=== PATIENT | female | born 1975 | race Caucasian/White ===

== ENCOUNTER 2017-05-24 11:46 | Emergency (ER) | payer SELFPAY ==
[~2017-05-24] VITALS: Ht 160 cm; Wt 75.0 kg
[2017-05-24 11:47] VITALS: BP 140/63; PULSE 92; RESP 20; TEMP 98.6; O2SAT 98
[2017-05-24] MEDS ORDERED: ACYCLOVIR 200 MG CAP PO ONE (12:30)
[2017-05-24] MEDS ORDERED: IBUPROFEN 600 MG TAB PO ONE (12:30)
[2017-05-24] MEDS ORDERED: ACETAMINOPHEN 500 MG CPLT PO ONE (12:30)
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
[2017-05-24] MEDS ORDERED: ACYC200C66 PO (13:18)
[2017-05-25 10:12] LABS: HSV 1,PCR Negative (Negative)
== END 2017-05-24 14:49 | disposition home or self-care (01) ==
LOC: NEPD 11:46
DX: N76.0 Acute vaginitis (principal)
CPT/HCPCS: 87529; 99283

== ENCOUNTER 2017-05-28 15:37 | Emergency (ER) | payer SELFPAY ==
[~2017-05-28] VITALS: Ht 160 cm; Wt 76.0 kg
[~2017-05-28 15:37] MED LIST: ACYC200C66 PO
[2017-05-28 15:42] VITALS: BP 131/74; PULSE 90; RESP 18; TEMP 98; O2SAT 97
[2017-05-28 16:32] LABS: AUTOMATED NEUTROPHIL # 7.9 TH/MM3 (1.8-7.7); BASOPHIL # 0.1 TH/MM3 (0-0.2); BASOPHIL % 0.4 % (0.0-2.0); EOSINOPHIL # 0.2 TH/MM3 (0-0.4); EOSINOPHIL % 1.9 % (0.0-4.0); HEMO FLAGS DIFF FINAL; LYMPH % 27.5 % (9.0-44.0); LYMPHOCYTE # 3.4 TH/MM3 (1.0-4.8); MEAN CELL VOLUME 88.1 FL (80.0-100.0); MEAN CORPUSCULAR HEMOGLOBIN 30.5 PG (27.0-34.0); MEAN CORPUSCULAR HGB CONC 34.7 % (32.0-36.0); MONO % 6.1 % (0.0-8.0); NEUT % 64.1 % (16.0-70.0); PLATELET COUNT 249 TH/MM3 (150-450); RED BLOOD COUNT 4.42 MIL/MM3 (4.00-5.30); RED CELL DISTRIBUTION WIDTH 14.6 % (11.6-17.2); WHITE BLOOD COUNT 12.4 TH/MM3 (4.0-11.0)
[2017-05-28 16:54] LABS: ANION GAP 12 MEQ/L (5-15); AST (GOT) 25 U/L (15-37); BICARBONATE 21.9 MEQ/L (21.0-32.0); BLOOD UREA NITROGEN 7 MG/DL (7-18); CHLORIDE 105 MEQ/L (98-107); GLOMERULAR FILTRATION RATE 55 ML/MIN (>89); POTASSIUM 3.3 MEQ/L (3.5-5.1); SODIUM (NA) 139 MEQ/L (136-145)
[2017-05-28 16:55] LABS: ALT (GPT) 55 U/L (10-53)
[2017-05-28 16:57] LABS: ALKALINE PHOSPHATASE 82 U/L (45-117); TOTAL BILIRUBIN ADULT 0.4 MG/DL (0.2-1.0)
--- NOTE | 2017-05-28 19:57 | PD ---
HPI Chief Complaint: Suicide Ideation/Attempt Time Seen by Provider: 19:11 Travel History International Travel<30 days: No Contact w/Intl Traveler<30days: No Traveled to known affect area: No History of Present Illness HPI 41-year-old female presents to the emergency department for psychiatric evaluation. Patient states she has been having suicidal thoughts for the past 3 days. She states that she has thought about jumping in front of a train or hanging herself. She states she tried to cut her wrist 2 days ago. Patient states her tetanus immunization is up-to-date. Patient reports history of borderline personality disorder, possible schizophrenia, bipolar disorder, fibromyalgia. She states she is currently on any medications. She does state that she smokes marijuana and uses cocaine 2 days ago. Patient has no medical complaints at this time. PFSH Past Medical History Bipolar Disorder: Yes Diminished Hearing: No Fibromyalgia: Yes Gastrointestinal Disorders: Yes (IBS) Psychiatric: Yes (Bipolar, Borderline personality, schizophrenia (?)) Migraines: Yes ?: Not Past Surgical History Cholecystectomy: Yes Gynecologic Surgery: Yes (c-sections, hysterectomy) Hysterectomy: Yes Social History Alcohol Use: No Tobacco Use: Yes (1 ppd) Substance Use: Yes Allergies-Medications (Allergen,Severity, Reaction): Coded Allergies: metronidazole (Verified Allergy, Intermediate, 05/24/17) sulfamethoxazole (Verified Allergy, Unknown, 05/24/17) trimethoprim (Verified Allergy, Unknown, 05/24/17) Reported Meds & Prescriptions Reported Meds & Active Scripts Active Acyclovir 200 Mg Cap 200 Mg PO 5 TIMES A DAY 10 Days Review of Systems Except as stated in HPI: all other systems reviewed are Neg Physical Exam Narrative GENERAL: Well-nourished, well-developed female patient, ambulatory. Afebrile. SKIN: Focused skin assessment warm/dry. Superficial laceration to the left anterior wrist. HEAD: Normocephalic. Atraumatic. EYES: No scleral icterus. No injection or drainage. NECK: Supple, trachea midline. No JVD or lymphadenopathy. CARDIOVASCULAR: Regular rate and rhythm without murmurs, gallops, or rubs. RESPIRATORY: Breath sounds equal bilaterally. No accessory muscle use. Lungs sounds are clear to auscultation. GASTROINTESTINAL: Abdomen soft, non-tender, nondistended. MUSCULOSKELETAL: No cyanosis, or edema. PSYCHIATRIC: No delusional thought processes. No hallucinations. Data Data Last Documented VS Vital Signs Date Time Temp Pulse Resp B/P (MAP) Pulse Ox O2 Delivery O2 Flow Rate FiO2 05/28/17 15:42 98.0 90 18 131/74 (93) 97 Orders Orders Complete Blood Count With Diff (05/28/17 15:50) Comprehensive Metabolic Panel (05/28/17 15:50) Psych Screen (05/28/17 15:50) Drug Screen, Random Urine (05/28/17 15:50) Labs Laboratory Tests Test 05/28/17 16:10 05/28/17 16:15 Urine Opiates Screen NEG Urine Barbiturates Screen NEG Urine Amphetamines Screen NEG Urine Benzodiazepines Screen POS Urine Cocaine Screen POS Urine Cannabinoids Screen POS White Blood Count 12.4 TH/MM3 Red Blood Count 4.42 MIL/MM3 Hemoglobin 13.5 GM/DL Hematocrit 39.0 % Mean Corpuscular Volume 88.1 FL Mean Corpuscular Hemoglobin 30.5 PG Mean Corpuscular Hemoglobin Concent 34.7 % Red Cell Distribution Width 14.6 % Platelet Count 249 TH/MM3 Mean Platelet Volume 7.4 FL Neutrophils (%) (Auto) 64.1 % Lymphocytes (%) (Auto) 27.5 % Monocytes (%) (Auto) 6.1 % Eosinophils (%) (Auto) 1.9 % Basophils (%) (Auto) 0.4 % Neutrophils # (Auto) 7.9 TH/MM3 Lymphocytes # (Auto) 3.4 TH/MM3 Monocytes # (Auto) 0.8 TH/MM3 Eosinophils # (Auto) 0.2 TH/MM3 Basophils # (Auto) 0.1 TH/MM3 CBC Comment DIFF FINAL Differential Comment Blood Urea Nitrogen 7 MG/DL Creatinine 1.09 MG/DL Random Glucose 114 MG/DL Total Protein 6.9 GM/DL Albumin 3.4 GM/DL Calcium Level 8.1 MG/DL Alkaline Phosphatase 82 U/L Aspartate Amino Transf (AST/SGOT) 25 U/L Alanine Aminotransferase (ALT/SGPT) 55 U/L Total Bilirubin 0.4 MG/DL Sodium Level 139 MEQ/L Potassium Level 3.3 MEQ/L Chloride Level 105 MEQ/L Carbon Dioxide Level 21.9 MEQ/L Anion Gap 12 MEQ/L Estimat Glomerular Filtration Rate 55 ML/MIN MDM Medical Decision Making Medical Screen Exam Complete: Yes Emergency Medical Condition: Yes Medical Record Reviewed: Yes Differential Diagnosis Depression versus anxiety versus bipolar disorder versus substance abuse Narrative Course 41-year-old female presents to the emergency department for psychiatric evaluation for suicidal ideation. CBC shows leukocytosis 12.4. CMP shows potassium 3.3, creatinine 1.09, ALT 55. Urine drug screen is positive for benzodiazepines, cocaine, cannabinoids. Patient is given potassium 20 mEq by mouth. Patient is medically cleared for psychiatric screening and disposition. Mental health screening discussed with the patient. Psychiatric screen ordered. Diagnosis Primary Impression: Polysubstance abuse Additional Impression: Suicidal ideation Condition: Stable Guadalupe Palomares May 28, 2017 19:57
[2017-05-28] MEDS ORDERED: POTASSIUM CHLORIDE 20 MEQ CONTROLLED RELEASE TAB PO ONE (20:00)
[2017-05-29 08:08] VITALS: BP 123/62; PULSE 72; RESP 18; O2SAT 96
[2017-05-29] MEDS ORDERED: ACYCLOVIR 200 MG CAP PO SCH (10:00)
--- NOTE | 2017-05-29 13:30 | PD ---
History of Present Illness Chief Complaint: Suicide Ideation/Attempt Time Seen by Provider: 13:15 Travel History International Travel<30 Days: No Contact w/Intl Traveler<30days: No Known affected area: No Legal Status Legal Status: Voluntary History of Present Illness: 41-year-old female presents voluntarily for the second time in the last week with "suicidal" complaints. Apparently the patient moved here with her boyfriend, from [place], 1 week ago. Her reason for moving was to be with the boyfriend. Unfortunately, she no longer knows where he is and states her family has no money to bring her back to [place]. She does wish to return to [place] and acknowledges that her relationship with her boyfriend appears to be dissolved. She also admits to using cocaine in the last several days. Her "suicidal" ideation has only been for the last 3 days, since she lost her boyfriend. Patient appears to be rather manipulative as she is eating her lunch and telling this physician that she wants to return to [place]. This behavior is considered to be inconsistent with someone who truly wants to . Patient is verbally bambi for safety, however, at this point and is competent to do so. PFSH Past Medical History Bipolar Disorder: Yes Diminished Hearing: No Fibromyalgia: Yes Gastrointestinal Disorders: Yes (IBS) Psychiatric: Yes (Bipolar, Borderline personality, schizophrenia (?)) Migraines: Yes ?: Not Past Surgical History Cholecystectomy: Yes Gynecologic Surgery: Yes (c-sections, hysterectomy) Hysterectomy: Yes Psychiatric History Psychiatric History Hx Psychiatric Treatment: Although the patient cites multiple psychiatric diagnoses that she may "suffer from", this physician does not find the patient to have any significant clinically objective evidence of a major mental illness. She may have a personality disorder and she is certainly abusing drugs. However, it appears that she is somewhat distressed because her boyfriend has abandoned her since her arrival and she made no plans as to how to care for herself or get back to [place]. History of Inpatient Treatment: No Guns or firearms in home: No Social History Hx Alcohol Use: No Hx Tobacco Use: Yes (1 ppd) Hx Substance Use: Yes Substance Use Type: Marijuana, Benzos (Valium,Xanax), Cocaine Hx of Substance Use Treatment: No Allergies-Medications (Allergen,Severity, Reaction): Coded Allergies: metronidazole (Verified Allergy, Intermediate, 05/24/17) sulfamethoxazole (Verified Allergy, Unknown, 05/24/17) trimethoprim (Verified Allergy, Unknown, 05/24/17) Reported Meds & Prescriptions Reported Meds & Active Scripts Active Acyclovir 200 Mg Cap 200 Mg PO 5 TIMES A DAY 10 Days Review of Systems Except as stated in HPI: all other systems reviewed are Neg Mental Status Examination Appearance: Appropriate Consciousness: Alert Orientation: x4 Motor Activity: Normal gait Speech: Unremarkable Language: Adequate Fund of Knowledge: Adequate Attention and Concentration: Adequate Memory: Unremarkable Mood: Appropriate Affect: Appropriate Thought Process & Associations: Intact Thought Content: Appropriate Hallucination Type: None Delusion Type: None Suicidal Ideation: No Suicidal Plan: No Suicidal Intention: No Homicidal Ideation: No Homicidal Plan: No Homicidal Intention: No Insight: Adequate Judgment: Adequate MDM Medical Decision Making Medical Record Reviewed: Yes Assessment/Plan Patient interviewed at bedside, medical record reviewed and case discussed with nurse Chen. This physician feels it is inappropriate and counter therapeutic to admit the patient for psychiatric reasons. The patient is malingering mental illness in order to be taking care of, as she has obviously put herself in a situation in which she abuses drugs and wants to be cared for by others. Patient's presentation isn't consistent with somebody who is clinically depressed or suicidal. She is currently denying suicidal or homicidal ideation , plan or intent. She exhibits no psychotic symptoms and her cognition is intact. She is verbally bambi for safety and she is competent to do so. Orders Orders Complete Blood Count With Diff (05/28/17 15:50) Comprehensive Metabolic Panel (05/28/17 15:50) Psych Screen (05/28/17 15:50) Drug Screen, Random Urine (05/28/17 15:50) Potassium Chloride (Kcl) (05/28/17 20:00) Diet Regular Basic (05/29/17 Breakfast) Acyclovir (Zovirax) (05/29/17 10:00) Diet Regular Basic (05/29/17 Lunch) Results Vital Signs Date Time Temp Pulse Resp B/P (MAP) Pulse Ox O2 Delivery O2 Flow Rate FiO2 05/29/17 08:08 72 18 123/62 (82) 96 Room Air 05/28/17 15:42 98.0 90 18 131/74 (93) 97 Laboratory Tests Test 05/28/17 16:10 05/28/17 16:15 Urine Opiates Screen NEG Urine Barbiturates Screen NEG Urine Amphetamines Screen NEG Urine Benzodiazepines Screen POS Urine Cocaine Screen POS Urine Cannabinoids Screen POS White Blood Count 12.4 Red Blood Count 4.42 Hemoglobin 13.5 Hematocrit 39.0 Mean Corpuscular Volume 88.1 Mean Corpuscular Hemoglobin 30.5 Mean Corpuscular Hemoglobin Concent 34.7 Red Cell Distribution Width 14.6 Platelet Count 249 Mean Platelet Volume 7.4 Neutrophils (%) (Auto) 64.1 Lymphocytes (%) (Auto) 27.5 Monocytes (%) (Auto) 6.1 Eosinophils (%) (Auto) 1.9 Basophils (%) (Auto) 0.4 Neutrophils # (Auto) 7.9 Lymphocytes # (Auto) 3.4 Monocytes # (Auto) 0.8 Eosinophils # (Auto) 0.2 Basophils # (Auto) 0.1 CBC Comment DIFF FINAL Differential Comment Blood Urea Nitrogen 7 Creatinine 1.09 Random Glucose 114 Total Protein 6.9 Albumin 3.4 Calcium Level 8.1 Alkaline Phosphatase 82 Aspartate Amino Transf (AST/SGOT) 25 Alanine Aminotransferase (ALT/SGPT) 55 Total Bilirubin 0.4 Sodium Level 139 Potassium Level 3.3 Chloride Level 105 Carbon Dioxide Level 21.9 Anion Gap 12 Estimat Glomerular Filtration Rate 55 Diagnosis Primary Impression: Adjustment disorder with mixed disturbance of emotions and conduct Additional Impressions: Cocaine abuse Malingering Condition: Stable Problem Qualifiers Matt Beard MD May 29, 2017 13:29
--- NOTE | 2017-05-29 13:58 | PD ---
Physical Exam Date Seen by Provider: May 29, 2017 Time Seen by Provider: 13:57 Narrative For full history and physical examination please see previous provider's notes. Patient presented voluntarily to the emergency department psychiatric evaluation. Data Data Last Documented VS Vital Signs Date Time Temp Pulse Resp B/P (MAP) Pulse Ox O2 Delivery O2 Flow Rate FiO2 05/29/17 08:08 72 18 123/62 (82) 96 Room Air 05/28/17 15:42 98.0 Orders Orders Complete Blood Count With Diff (05/28/17 15:50) Comprehensive Metabolic Panel (05/28/17 15:50) Psych Screen (05/28/17 15:50) Drug Screen, Random Urine (05/28/17 15:50) Potassium Chloride (Kcl) (05/28/17 20:00) Diet Regular Basic (05/29/17 Breakfast) Acyclovir (Zovirax) (05/29/17 10:00) Diet Regular Basic (05/29/17 Lunch) Ed Discharge Order (05/29/17 13:56) Labs Laboratory Tests Test 05/28/17 16:10 05/28/17 16:15 Urine Opiates Screen NEG Urine Barbiturates Screen NEG Urine Amphetamines Screen NEG Urine Benzodiazepines Screen POS Urine Cocaine Screen POS Urine Cannabinoids Screen POS White Blood Count 12.4 TH/MM3 Red Blood Count 4.42 MIL/MM3 Hemoglobin 13.5 GM/DL Hematocrit 39.0 % Mean Corpuscular Volume 88.1 FL Mean Corpuscular Hemoglobin 30.5 PG Mean Corpuscular Hemoglobin Concent 34.7 % Red Cell Distribution Width 14.6 % Platelet Count 249 TH/MM3 Mean Platelet Volume 7.4 FL Neutrophils (%) (Auto) 64.1 % Lymphocytes (%) (Auto) 27.5 % Monocytes (%) (Auto) 6.1 % Eosinophils (%) (Auto) 1.9 % Basophils (%) (Auto) 0.4 % Neutrophils # (Auto) 7.9 TH/MM3 Lymphocytes # (Auto) 3.4 TH/MM3 Monocytes # (Auto) 0.8 TH/MM3 Eosinophils # (Auto) 0.2 TH/MM3 Basophils # (Auto) 0.1 TH/MM3 CBC Comment DIFF FINAL Differential Comment Blood Urea Nitrogen 7 MG/DL Creatinine 1.09 MG/DL Random Glucose 114 MG/DL Total Protein 6.9 GM/DL Albumin 3.4 GM/DL Calcium Level 8.1 MG/DL Alkaline Phosphatase 82 U/L Aspartate Amino Transf (AST/SGOT) 25 U/L Alanine Aminotransferase (ALT/SGPT) 55 U/L Total Bilirubin 0.4 MG/DL Sodium Level 139 MEQ/L Potassium Level 3.3 MEQ/L Chloride Level 105 MEQ/L Carbon Dioxide Level 21.9 MEQ/L Anion Gap 12 MEQ/L Estimat Glomerular Filtration Rate 55 ML/MIN MDM Medical Record Reviewed: Yes Supervised Visit with EVANGELISTA: No Narrative Course Patient is a 41-year-old female presented voluntarily to emergency department for psychiatric evaluation. Patient was seen and evaluated emergency department , she was then medically cleared. She was then evaluated by the psychiatrist. Patient is stable for discharge. Please see previous provider's notes. Diagnosis Primary Impression: Adjustment disorder with mixed disturbance of emotions and conduct Additional Impressions: Cocaine abuse Malingering Referrals: [facility] Patient Instructions: General Instructions Additional Instruction: Follow-up at [facility] Follow-up with your primary doctor Avoid use of illicit drugs Return to emergency department for any new or worsening symptoms Med/Other Pt SpecificInfo: No Change to Meds Disposition: 01 DISCHARGE HOME Condition: Stable Maria Eugenia Triana [facility] [place] May 29, 2017 13:58
== END 2017-05-29 15:17 | disposition home or self-care (01) ==
LOC: NEPJ 15:37
DX: F43.25 Adjustment disorder with mixed disturbance of emotions and conduct (principal); F14.10 Cocaine abuse, uncomplicated; F60.3 Borderline personality disorder; F17.210 Nicotine dependence, cigarettes, uncomplicated; F12.90 Cannabis use, unspecified, uncomplicated; Z76.5 Malingerer [conscious simulation]
CPT/HCPCS: 80053; 80307; 85025; 99283